=== PATIENT | male | born 1990 | race American Indian/Alaskan Native ===

== ENCOUNTER 2017-02-06 19:37 | Inpatient (IN) | payer SELFPAY ==
[~2017-02-06] VITALS: Ht 188 cm; Wt 65.7 kg
--- NOTE | ~2017-02-06 | HP ---
PATIENT'S NAME: CAROL WINKLER [facility] AGE: 26 Y [address] ROOM: [place] [address] LOCATION: [facility] ADMIT DATE: 02/06/2017 History & Physical DISCHARGE DATE: FAMILY PHYSICIAN: PHYSICIAN, NO ATTENDING PHYSICIAN: Aniket Wolff DATE OF SERVICE: CHIEF COMPLAINT: Seizure in the setting of alcohol dependence and hyponatremia. HISTORY OF PRESENTING ILLNESS: This 26-year-old male was brought to the emergency department by family after a seizure, which occurred this evening. Apparently, he had been with friends when he had some seizure activity. It is unclear how long the episode lasted, but it did resolve spontaneously. After his arrival in the emergency room, he was tremulous but alert and cooperative. He states he does not have any recollection of the episode. "I just woke up in the ambulance." He does relate he had been sick several days ago after a drinking binge. He states that he had been drinking quite a bit of whiskey and developed some nausea, vomiting, and anorexia, which lasted for a couple of days. Today, he started drinking again, and the seizure episode subsequently occurred. He does complain of mild headache. Also feels a little dizzy and lightheaded, but he is not nauseated. Denies double vision or scotomata but does have some blurred vision intermittently. No antwon chest pain. No congestion or cough. No significant shortness of breath. Denies antwon abdominal pain. Stools have been regular. Denies noticing any blood in his stools or black tarry stools. No urinary complaints. No numbness, tingling, or weakness in his extremities or any other associated physical or constitutional complaints. ALLERGIES: AMOXICILLIN CAUSES GI UPSET. ILLNESSES: 1. Alcohol dependence. 2. Polysubstance use. CURRENT MEDICATIONS: None. FAMILY HISTORY: Negative for cancer or stroke. PATIENT'S NAME: CAROL WINKLER [facility] AGE: 26 Y [address] ROOM: [id number] [place], [place] [address] LOCATION: [facility] ADMIT DATE: 02/06/2017 History & Physical DISCHARGE DATE: FAMILY PHYSICIAN: PHYSICIAN, NO ATTENDING PHYSICIAN: Aniket Wolff SOCIAL HISTORY: He is unmarried and lives in [place]. He admits to drinking 5/7 days a week, typically whiskey. He can not quantify. He often drinks a couple of 40 ounce beers on did a daily basis. He also admits to smoking tobacco but not regularly. He can not remember the last time he smoked a cigarette but does smoke marijuana occasionally. He thinks that he may have smoked marijuana within the last 24 hours. He can not quantify his usage of that but denies any other illicit drug use, herbal remedies, or significant caffeine intake. He does not use energy drinks. REVIEW OF SYSTEMS: As per HPI. All other organ systems reviewed and are negative. PHYSICAL EXAMINATION: VITAL SIGNS: Temperature 100.4, pulse 139, respirations 20, blood pressure 122/61, O2 saturation 95% on room air. GENERAL: He is anxious, mildly ill appearing, lying in the bed, in no acute distress. SKIN: Supple, brown, warm, and dry. There are tattoos over the chest and upper extremities and several skin piercings but no rashes. HEENT: Otherwise, normocephalic. Sclerae nonicteric. Pupils equal, round, and reactive to light and accommodation. Extraocular movements appear intact. Nasal turbinates are normal in appearance. Oropharynx clear. Mucous membranes are pink and moist. NECK: Supple. No masses or adenopathy. No thyromegaly. No JVD. CHEST: Wall is symmetrical. HEART: Tachycardic but regular. LUNGS: Diminished at the bases. No wheezes, no crackles. No rales or consolidation. ABDOMEN: Soft, flat, diffusely tender but without guarding or rebound. No masses or hepatosplenomegaly. and RECTAL: Not done. EXTREMITIES: Display cachexia. No clubbing, cyanosis, or edema. NEUROLOGICAL: Tremulous. Strength is 4 to 5 out of 5 bilaterally in the upper and lower extremities. DTRs are 2+, brisk, symmetrical. Sensation appears intact. Gait is not observed. LABORATORY AND X-RAY DATA: CBC showed a white blood cell count 8.1, hemoglobin is 14.1, hematocrit 40.3, platelets 162. Chemistries reveal BUN and creatinine of 9 and 1.3 respectively, sodium and potassium of 122 and 3.0, chloride and CO2 are 78 and 18 respectively, calcium is 8.0. AST and ALT of 807 and 195 respectively, bilirubin is 0.7, glucose was minimally elevated at 108. Urine drug screen was positive for THC. Serum ethanol level was 0.066. Tylenol and salicylates PATIENT'S NAME: CAROL WINKLER [facility] AGE: 26 Y [address] ROOM: [id number] [place] [id number] LOCATION: [facility] ADMIT DATE: 02/06/2017 History & Physical DISCHARGE DATE: FAMILY PHYSICIAN: PHYSICIAN, NO ATTENDING PHYSICIAN: Aniket Wolff levels were below limits of detectability. A serum prolactin level was elevated at 47.3. ASSESSMENT AND PLAN: 1. Seizure in the setting of hyponatremia and alcohol dependence. We will admit for observation. We will hold off on any antiseizure medication and work on correcting his sodium and managing alcohol dependence. We will provide some supportive cares and clinical monitoring. We will utilize benzodiazepine therapy carefully. 2. Alcohol dependence. I placed him on the detox pathway. We will monitor and utilize oral diazepam. If his nausea persists, we will switch to IV Ativan. 3. Hypokalemia. We will correct with IV potassium and monitor. 4. Elevated liver function tests. Suspect alcoholic hepatitis. We will hydrate him and provide some supportive cares and clinical monitoring and follow this serially. Work on abstinence. 5. Polysubstance use. He is contemplative and requested some "help." We will request chemical dependency evaluation and review treatment options for him including both inpatient and outpatient opportunities. 6. Deep venous thrombosis prophylaxis. We will use low-dose Lovenox while he is inpatient. MD MARCE BARBER/sara /[id number] D: T: 804 HISTORY & PHYSICAL
--- NOTE | ~2017-02-06 | CON ---
PATIENT'S NAME: CAROL WINKLER [facility] AGE: 26 Y [address] ROOM: [place] [address] LOCATION: GICU ADMIT DATE: 02/06/2017 Consultation DISCHARGE DATE: FAMILY PHYSICIAN: PHYSICIAN, NO ATTENDING PHYSICIAN: Aniket Wolff DATE OF CONSULTATION: 02/07/2017 REFERRING PHYSICIAN: Kenya Neves MD REFERRING PHYSICIANS: Dr. Wolff and Dr. Gutierrez. CONSULTING PHYSICIAN: Kenya Neves M.D. REASON FOR CONSULTATION: Possible upper GI bleeding and hypotension. HISTORY OF PRESENT ILLNESS: The patient is a 26-year-old white male, who was unable to provide much history because of his confusion. He was admitted yesterday through the emergency room for a seizure. The exact episode was unclear. He had been on an alcohol binge. Complains of headache and developed seizures. Denied any black tarry stools at that time. This evening, I was called by Dr. Wolff. He has become hypotensive. He had a coffee-ground emesis. He was then transferred to the ICU. At the time of my assessment, he does have NG tube in place. The NG tube has some coffee- ground, which cleared up easily. He was hypotensive and has been started on pressors. However, after some aggressive fluid resuscitation, his hypotension is somewhat better. His blood pressure is about 100 systolic. I do not have any other history at this time other than alcohol dependence. ALLERGIES: AMOXIL. ILLNESSES: Include alcohol abuse and polysubstance abuse. CURRENT MEDICATIONS: None. FAMILY HISTORY: Noncontributory. PATIENT'S NAME: CAROL WINKLER [facility] AGE: 26 Y [address] ROOM: [place] [address] LOCATION: GICU ADMIT DATE: 02/06/2017 Consultation DISCHARGE DATE: FAMILY PHYSICIAN: PHYSICIAN, NO ATTENDING PHYSICIAN: Aniket Wolff SOCIAL HISTORY: He is unmarried and lives in [place]. Drinks alcohol 5 to 7 days a week. He also smokes marijuana occasionally. REVIEW OF SYSTEMS: Limited review of system was obtained from the chart and is negative other than what is mentioned in the history of present illness and past medical history. PHYSICAL EXAMINATION: GENERAL: Now, he is still confused. He was just sedated, and he is unsettled. He does not seem to have any icterus. VITAL SIGNS: His blood pressure is now in the range of about 110 systolic after resuscitation and vasopressors. CHEST: He has good air entry bilaterally. ABDOMEN: Soft. I do not see any ascites, although exam is very limited. LABORATORY DATA: His labs done today: INR is 1.27. Procalcitonin is high at 6.82. Basic panel: Sodium 131, potassium 3.6, chloride 93, bicarbonate is 27, BUN is 40, creatinine is 1.1. CBC shows WBC 10.3, hemoglobin 8.8, hematocrit 26.1, platelet count is 121. His hemoglobin yesterday evening was 14.1 and is 8.8 now. Platelet count is 121, which is down from 222. He does have a slight left shift 76 % neutrophils. IMPRESSION: The patient with very complex presentation, currently has hypotension. NG tube does not show any evidence of fresh blood. There has been some coffee- ground. It does not appear to be a variceal bleed at this point at least. However, he could have a postpyloric ulcer bleed. Interestingly, his BUN has also gone up and this might suggest bleeding. He has been currently intubated. At this time, I would suggest that we continue with the octreotide 50 mcg an hour after 100 mcg bolus. We will continue with PPI infusion. We will continue to watch his hemoglobin. We will hydrate him aggressively. Should he continue to be hypotensive, he may need an urgent endoscopy tonight. He will be watched very closely. This was discussed with Dr. Wolff. Thank you once again for the courtesy of this consultation. MD SLIM CARRINGTON/sara PATIENT'S NAME: CAROL WINKLER [facility] AGE: 26 Y [address] ROOM: [place] [address] LOCATION: [facility] ADMIT DATE: 02/06/2017 Consultation DISCHARGE DATE: FAMILY PHYSICIAN: PHYSICIAN, NO ATTENDING PHYSICIAN: Aniket Wolff /[id number] d: 02/08/17 0304 t: 02/08/17 1816, CONSULTATION REPORT
--- NOTE | ~2017-02-06 | PN ---
PATIENT'S NAME: CAROL WINKLER [facility] AGE: 26 Y [address] ROOM: [id number] [place], [place] [address] LOCATION: GICU ADMIT DATE: 02/06/2017 Progress Notes DISCHARGE DATE: FAMILY PHYSICIAN: PHYSICIAN, NO ATTENDING PHYSICIAN: Aniket Wolff DATE OF SERVICE: 02/09/2017 PRINCIPAL DIAGNOSES: 1. Seizures secondary to alcohol withdrawal as well as hyponatremia. 2. Acute blood loss anemia secondary to esophageal tear. 3. Acute gastritis, alcohol induced. 4. Fatty liver disease secondary to alcohol abuse. 5. Moderate protein-calorie malnutrition. 6. Rhabdomyolysis. 7. Alcohol abuse and dependence. 8. Polysubstance abuse. 9. Hyponatremia. HOSPITAL COURSE: A 26-year-old gentleman, who had a past medical history of heavy alcohol abuse, was admitted to the hospital with an episode of seizure. Initial evaluation with a CAT scan was negative for any acute changes in the head. His lab work did show significant hyponatremia with an initial sodium level of 122. He was placed on a regular floor initially. He was started on careful volume resuscitation with the goal of correction of sodium with 6 per day. He was also given a dose of desmopressin. He was also started on alcohol withdrawal protocol, requiring high doses of benzodiazepines for that. During his stay on the regular mari, he started developing marked tachycardia as well as hypotension. Labs were drawn. He was found to have acute blood loss anemia with his hemoglobin dropping from 14 to 8. An NG tube was placed, and coffee-grounds blood was aspirated from the stomach. He was transferred to the intensive care unit. Central venous access was achieved. He was intubated for airway protection. He was initially started on a PPI drip as well as octreotide drip. Gastroenterology consultation was obtained, and he did undergo an EGD which did reveal esophageal tear as well as acute gastritis, but no ulcers were found. He did briefly require pressors to maintain his blood pressure secondary to this hypovolemic shock. He was extubated next day without any acute events. His sodium, over the course of 72 hours, was corrected to 135. He continues to be on alcohol withdrawal protocol. Of note, he also had rhabdomyolysis which, despite aggressive volume resuscitation, was hard to improve. We are keeping an eye on it. We will continue intravenous resuscitation to correct for his rhabdomyolysis. We will PATIENT'S NAME: CAROL WINKLER [facility] AGE: 26 Y [address] ROOM: [address] [address] LOCATION: [facility] ADMIT DATE: 02/06/2017 Progress Notes DISCHARGE DATE: FAMILY PHYSICIAN: PHYSICIAN, NO ATTENDING PHYSICIAN: Aniket Wolff monitor with CPK. He also developed aspiration pneumonia. For that, we started him on Zosyn. MD OSMIN SWIFT/sara /[id number] d: 02/09/171615 t: 02/16/171955, PROGRESS NOTES
--- NOTE | ~2017-02-06 | DS ---
PATIENT'S NAME: CAROL WINKLER [facility] AGE: 26 Y [address] ROOM: [id number] [place], [place] [address] LOCATION: GICU ADMIT DATE: 02/06/2017 Discharge Summary DISCHARGE DATE: 02/11/2017 FAMILY PHYSICIAN: PHYSICIAN, NO ATTENDING PHYSICIAN: Aniket Wolff PRINCIPAL DIAGNOSES: 1. Seizure secondary to alcohol withdrawal. 2. Hyponatremia. 3. Upper gastrointestinal bleed. 4. Maura-Murrieta tear. 5. Alcohol abuse. 6. Acute respiratory failure, requiring intubation. 7. Rhabdomyolysis. HOSPITAL COURSE: This is a 26-year-old male with past medical history of heavy alcohol use, admitted to the hospital after an episode of seizure and confusion. The patient was worked up for seizure including CAT scan of the head, which was negative. The patient on initial workup had sodium level of 122 as well. The patient was initially placed on the regular floor with goals of volume resuscitation and correction of sodium. He was also started on alcohol withdrawal protocol and also given a dose of desmopressin due to his mentation and low sodium upon admission. While on the general medical floor, the patient was noted to be hypotensive and found to have coffee-ground emesis and hemoglobin drop of 8 from 14, which was the value upon presentation. The patient was subsequently transferred to the intensive care unit and was emergently intubated for airway protection. Gastroenterology consultation was obtained, and he did undergo an EGD, which revealed Maura-Murrieta type esophageal tear as well as esophagitis and gastritis. The patient also did require pressors briefly due to hypovolemic shock. The patient was successfully extubated the next day without any events. The patient's sodium was slowly corrected, and on discharge, the patient's sodium was 135. The patient did not have any signs and symptoms of alcohol withdrawal during his hospitalization as well. Of note, the patient was also noted to have a CPK level greater than 12,000; however; there were no signs of SHARMIN or ATN due to this. The aggressive fluid resuscitation was continued, and the patient's CPK today is 7000, which was a drop from 12,000 yesterday. The patient is making adequate urine. At this point, the patient will be discharged home with his mother, who will move the patient with her to [place]. The patient's mother is able to find a primary care physician to follow up within one week. The patient is to have a repeat renal panel, CPK, and CBC. The patient was also noted to have aspiration pneumonia during the hospitalization and had been on broad-spectrum antibiotics, and we will send him on Augmentin for 5 more days to finish antibiotic course. PATIENT'S NAME: CAROL WINKLER [facility] AGE: 26 Y [address] ROOM: [id number] [place] [address] LOCATION: [facility] ADMIT DATE: 02/06/2017 Discharge Summary DISCHARGE DATE: 02/11/2017 FAMILY PHYSICIAN: PHYSICIAN, NO ATTENDING PHYSICIAN: Aniket Wolff PHYSICAL EXAMINATION: GENERAL: The patient is alert, awake, and oriented x3. VITAL SIGNS: Stable. Afebrile. CHEST: Clear to auscultation bilaterally. HEART: S1, S2. Regular rate and rhythm. ABDOMEN: Soft, nontender, nondistended. EXTREMITIES: Without edema. NEURO: Grossly nonfocal. MEDICATIONS: Per MAR includin. Protonix 40 mg daily. 2. Augmentin b.i.d. for 5 more days. DISPOSITION: The patient discharged home with mother, who will be staying with him in [place]. FOLLOWUP: Follow up with PCP within one week and mother is arranging for that currently. Greater than 30 minutes were spent in discharge planning and facilitating. MD VLADIMIR MCCORMACK/sara /[id number] d: 02/12/17 0248 t: 02/17/17 1419, DISCHARGE SUMMARY
--- NOTE | ~2017-02-06 | ER ---
PATIENT'S NAME: CAROL WINKLER [facility] AGE: 26 Y [address] ROOM: [place] [address] LOCATION: [facility] ADMIT DATE: 02/06/2017 ER/Outpatient Report DISCHARGE DATE: FAMILY PHYSICIAN: PHYSICIAN, NO ATTENDING PHYSICIAN: Aniket Wolff TIME OF EXAMINATION: 19:35. CHIEF COMPLAINT: Seizure. HISTORY OF PRESENT ILLNESS: The patient arrived per EMS [place] [id number], with IV in the right hand wrist. Just prior to arrival, the patient was in the backseat of a car and they were driving. He was drinking at that time. He had been talking to the people in the car, and then had seizure-like activity. Witness states that his eyes rolled back, he was frothing at the mouth, and having a tonic-clonic type activity of the upper extremities. He was unresponsive during the seizure. Upon arrival of the ambulance, he was postictal. Upon arrival to the ER, the patient is awake and able to answer questions. He denies having a headache. He states he was feeling fine prior to the episode, except two days ago, he did have problems with vomiting. He denies having a change in his vision. Other than the alcohol, only he had been smoking marijuana. He denies any injury with this seizure and did not hit his head. He did not fall down. ALLERGIES: AMOXICILLIN. CURRENT MEDICATIONS: None. PAST MEDICAL HISTORY: 1. Alcohol abuse. 2. Tobacco abuse. PAST SURGERIES: Negative. SOCIAL HISTORY: He states he smokes at least four cigarettes per day, and drinks alcohol at least 5/7 days of the week. He states that he drinks at least a fifth of whiskey when he drinks. He has been drinking on a regular basis since he turned [age]. Today, he had two 40-ounce beers and some marijuana. PATIENT'S NAME: CAROL WINKLER [facility] AGE: 26 Y [address] ROOM: [id number] [place] [address] LOCATION: [facility] ADMIT DATE: 02/06/2017 ER/Outpatient Report DISCHARGE DATE: FAMILY PHYSICIAN: PHYSICIAN, NO ATTENDING PHYSICIAN: Aniket Wolff REVIEW OF SYSTEMS: All were negative other than those mentioned in the HPI. PHYSICAL EXAMINATION: VITAL SIGNS: He states he is 6 feet 3 inches and weight is 167.1 kg. Blood pressure is 100/54, pulse is 139, respirations are 20, temperature is 100.4, and tympanic O2 saturation is 95% on room air. GENERAL: He is awake, alert, and oriented x4. SKIN: [place], warm, and dry. HEENT: Pupils are equal and reactive to light. Extraocular movements are intact. TMs are clear. Nose is clear. Oropharynx is clear. NECK: Supple. LUNGS: Respirations are even and nonlabored. Lung sounds were clear throughout. HEART: Tachycardic and regular. ABDOMEN: Soft and nondistended. Bowel sounds are present. EXTREMITIES: Showed no peripheral edema. He moves all limbs equally. LABORATORY DATA AND DIAGNOSTIC STUDIES: Lab work was obtained. CT of the head was completed. Radiologist reported no acute abnormalities. The patient was given Tylenol 1000 mg p.o. for his fever. CBC was within normal limits. Chemistry panel showed a sodium of 122, potassium of 3, chloride of 78, his CO2 was 18 with anion gap of 29, and his BUN was 9 with creatinine of 1.3. Total bilirubin is 0.7. His AST is elevated at 807 with an ALT of 195. Medical alcohol was 0.066. Tylenol is negative. Aspirin is negative. Prolactin is 47.3. He was able to urinate. Urine drug screen is positive for cannabinoids. EKG showed sinus tachycardia. Dr. Wolff was contacted regarding the patient. He agrees that the patient needs to be admitted. IMPRESSION: 1. Seizure, new onset. 2. Hyponatremia. 3. Hypokalemia. 4. EtOH abuse. PLAN: The patient will be placed in outpatient observation in the Neuro Trauma Unit on telemetry for cares of Dr. Wolff, the hospitalist. The patient and his family are aware of plan of care and agree. PATIENT'S NAME: CAROL WINKLER [facility] AGE: 26 Y [address] ROOM: [place] [address] LOCATION: [facility] ADMIT DATE: 02/06/2017 ER/Outpatient Report DISCHARGE DATE: FAMILY PHYSICIAN: PHYSICIAN, NO ATTENDING PHYSICIAN: Aniket Wolff APRN FOR MD HENRIQUE MCNAMARA/sara /[id number] d: 02/07/17 0130 t: 02/15/17 0607, OUTPATIENT REPORT
[2017-02-06 19:54] LABS: BASOPHIL % 0.2 %; EOSINOPHIL % 0.1 %; HEMATOCRIT 40.3 % (37.0-53.0); HEMOGLOBIN 14.1 g/dL (12.0-17.0); IMMATURE GRANULOCYTE % 0.5 %; LYMPHOCYTE # 1.2 K/uL (0.8-4.0); LYMPHOCYTE % 14.7 %; MCH 31.7 pg (27.0-34.0); MCV 90.6 fl (83.0-98.0); MONOCYTE # 0.6 K/uL (0.0-1.0); MONOCYTE % 7.4 %; MPV 9.7 fl (9.4-12.4); NEUTROPHIL # (ANC) 6.3 K/uL (1.4-9.0); NEUTROPHIL % 77.1 %; NRBC % 0.4 /100WBC (0-0.00); PLATELET COUNT 162 K/uL (150-450); RBC 4.45 M/uL (4.00-6.00); RDW-CV 14.1 % (11.9-14.6); WBC 8.1 K/uL (4.0-11.0)
[2017-02-06 20:10] LABS: ALBUMIN 3.1 gm/dL (3.5-5.0); ALK PHOS 133 IU/L (33-138); ALT 195 IU/L (12-78); BLOOD UREA NITROGEN 9 mg/dL (6-24); CO2 18 mMol/L (22-32); CREATININE 1.3 mg/dL (0.6-1.3); ESTIMATED GFR (MDRD EQUATION) > 60; TOTAL BILIRUBIN 0.7 mg/dL (0.0-1.5); TOTAL PROTEIN 8.4 g/dL (6.0-8.4)
[2017-02-06 20:11] LABS: AST 807 IU/L (10-40); CHLORIDE 78 mMol/L (96-110); SODIUM 122 mMol/L (135-145)
[2017-02-06 20:36] LABS: AMPHETAMINE NEGATIVE (NEGATIVE); BARBITURATE NEGATIVE (NEGATIVE); COCAINE NEGATIVE (NEGATIVE); OPIATES NEGATIVE (NEGATIVE)
[2017-02-06 23:15] LABS: CALCIUM 7.7 mg/dL (8.5-10.5); CO2 21 mMol/L (22-32); CREATININE 1.2 mg/dL (0.6-1.3); ESTIMATED GFR (MDRD EQUATION) > 60; POTASSIUM 3.1 mMol/L (3.7-5.1)
[2017-02-06 23:18] LABS: ANION GAP 24.1 (10.0-19.0); BLOOD UREA NITROGEN 14 mg/dL (6-24); CHLORIDE 80 mMol/L (96-110); SODIUM 122 mMol/L (135-145)
[2017-02-07 04:09] LABS: BASOPHIL % 0.1 %; EOSINOPHIL % 0.1 %; HEMATOCRIT 33.7 % (37.0-53.0); HEMOGLOBIN 11.8 g/dL (12.0-17.0); IMMATURE GRANULOCYTE # 0.1 K/uL (0.0-0.3); IMMATURE GRANULOCYTE % 0.9 %; LYMPHOCYTE # 1.2 K/uL (0.8-4.0); LYMPHOCYTE % 12.7 %; MCV 91.3 fl (83.0-98.0); MONOCYTE # 0.7 K/uL (0.0-1.0); MONOCYTE % 8.1 %; MPV 10.9 fl (9.4-12.4); NEUTROPHIL # (ANC) 7.1 K/uL (1.4-9.0); NEUTROPHIL % 78.1 %; NRBC % 0 /100WBC (0-0.00); PLATELET COUNT 148 K/uL (150-450); RBC 3.69 M/uL (4.00-6.00); RDW-CV 14.6 % (11.9-14.6); WBC 9.1 K/uL (4.0-11.0)
[2017-02-07 04:25] LABS: CALCIUM 7.6 mg/dL (8.5-10.5); CO2 30 mMol/L (22-32); CREATININE 1.2 mg/dL (0.6-1.3); ESTIMATED GFR (MDRD EQUATION) > 60; PHOSPHORUS 3.2 mg/dL (2.5-4.9); POTASSIUM 3.8 mMol/L (3.7-5.1); SODIUM 127 mMol/L (135-145)
[2017-02-07 04:26] LABS: ANION GAP 15.8 (10.0-19.0); BLOOD UREA NITROGEN 22 mg/dL (6-24); CHLORIDE 85 mMol/L (96-110)
[2017-02-07] MEDS ORDERED: TYLENOL EXTRA500 MG PO (08:01)
[2017-02-07 16:37] LABS: ANION GAP 14.6 (10.0-19.0); BLOOD UREA NITROGEN 33 mg/dL (6-24); CHLORIDE 91 mMol/L (96-110); CO2 28 mMol/L (22-32); CREATININE 0.9 mg/dL (0.6-1.3); ESTIMATED GFR (MDRD EQUATION) > 60; POTASSIUM 3.6 mMol/L (3.7-5.1); SODIUM 130 mMol/L (135-145)
[2017-02-07 16:40] LABS: CALCIUM 7.3 mg/dL (8.5-10.5)
[2017-02-07 20:08] LABS: BILIRUBIN URINE NEGATIVE (NEGATIVE); BLOOD URINE 50 /UL (NEGATIVE); COLOR URINE YELLOW (YELLOW); GLUCOSE URINE NEGATIVE (NEGATIVE); KETONE URINE 15 mg/dL (NEGATIVE); LEUKOCYTES URINE 100 /UL (NEGATIVE); NITRITE URINE NEGATIVE (NEGATIVE); PROTEIN URINE 30 mg/dL (NEGATIVE); TURBIDITY URINE 1+ (CLEAR); UROBILINOGEN URINE NORMAL (NORMAL)
[2017-02-07 20:18] LABS: BACTERIA URINE NEGATIVE (NEGATIVE); EPITHELIAL URINE 0-2 #/HPF (NEGATIVE); RBC URINE RARE #/HPF (NEGATIVE); WBC URINE 20-50 #/HPF (NEGATIVE)
[2017-02-07 20:27] LABS: BASOPHIL % 0.2 %; EOSINOPHIL % 0.1 %; HEMATOCRIT 26.1 % (37.0-53.0); HEMOGLOBIN 8.8 g/dL (12.0-17.0); IMMATURE GRANULOCYTE # 0.1 K/uL (0.0-0.3); LYMPHOCYTE % 19.2 %; MCHC 33.7 gm/dL (32.0-36.5); MCV 94.9 fl (83.0-98.0); MONOCYTE # 0.7 K/uL (0.0-1.0); MONOCYTE % 6.4 %; MPV 10.8 fl (9.4-12.4); NEUTROPHIL # (ANC) 7.6 K/uL (1.4-9.0); NEUTROPHIL % 73.1 %; NRBC % 0 /100WBC (0-0.00); PLATELET COUNT 121 K/uL (150-450); RBC 2.75 M/uL (4.00-6.00); RDW-CV 14.6 % (11.9-14.6); WBC 10.3 K/uL (4.0-11.0)
[2017-02-07 20:40] LABS: ANION GAP 14.6 (10.0-19.0); BLOOD UREA NITROGEN 40 mg/dL (6-24); CHLORIDE 93 mMol/L (96-110); CO2 27 mMol/L (22-32); CREATININE 1.1 mg/dL (0.6-1.3); ESTIMATED GFR (MDRD EQUATION) > 60; POTASSIUM 3.6 mMol/L (3.7-5.1); SODIUM 131 mMol/L (135-145)
[2017-02-07 21:49] LABS: INR - (THERAPEUTIC) 1.27 (0.92-1.07); PROTIME 13.4 SECONDS (9.8-11.4)
[2017-02-08 01:06] LABS: HEMATOCRIT 25.2 % (37.0-53.0); HEMOGLOBIN 8.6 g/dL (12.0-17.0)
[2017-02-08 04:15] LABS: BICARBONATE 29.5 mmol/L (18.0-23.0); PCO2 37 mmHg (35-45); PO2 135 mmHg (80-90)
[2017-02-08 05:10] LABS: ANION GAP 13.3 (10.0-19.0); BLOOD UREA NITROGEN 30 mg/dL (6-24); CHLORIDE 97 mMol/L (96-110); CO2 27 mMol/L (22-32); CREATININE 0.7 mg/dL (0.6-1.3); ESTIMATED GFR (MDRD EQUATION) > 60; POTASSIUM 3.3 mMol/L (3.7-5.1); SODIUM 134 mMol/L (135-145)
[2017-02-08 05:11] LABS: CALCIUM 6.5 mg/dL (8.5-10.5); PHOSPHORUS 1.8 mg/dL (2.5-4.9)
[2017-02-08 05:16] LABS: ALBUMIN 1.8 gm/dL (3.5-5.0); HEMATOCRIT 26.8 % (37.0-53.0); HEMOGLOBIN 9.3 g/dL (12.0-17.0); MCH 31.5 pg (27.0-34.0); MCHC 34.7 gm/dL (32.0-36.5); MCV 90.8 fl (83.0-98.0); MPV 11.4 fl (9.4-12.4); PLATELET COUNT 91 K/uL (150-450); RBC 2.95 M/uL (4.00-6.00); RDW-CV 14.6 % (11.9-14.6); TOTAL BILIRUBIN 1.4 mg/dL (0.0-1.5); TOTAL PROTEIN 4.6 g/dL (6.0-8.4); WBC 8.6 K/uL (4.0-11.0)
[2017-02-08 05:47] LABS: ABSOLUTE NEUTROPHIL CT (ANC) 6.7 K/uL (1.4-9.0); BANDED NEUTROPHIL # 1.7 K/uL (0.0-0.1); BANDED NEUTROPHILS % 20 %; LYMPHOCYTE # 1.5 K/uL (0.8-4.0); LYMPHOCYTE % 18 %; MONOCYTE # 0.2 K/uL (0.0-1.0); SEGMENTED NEUTROPHIL % 58 %
[2017-02-08 07:25] LABS: HEMATOCRIT 27.3 % (37.0-53.0); HEMOGLOBIN 9.5 g/dL (12.0-17.0)
[2017-02-08 12:02] LABS: HEMOGLOBIN 8.5 g/dL (12.0-17.0)
[2017-02-08 15:58] LABS: HEMATOCRIT 26.3 % (37.0-53.0); HEMOGLOBIN 9.1 g/dL (12.0-17.0)
[2017-02-08 20:22] LABS: HEMOGLOBIN 9.2 g/dL (12.0-17.0)
[2017-02-09 00:17] LABS: HEMATOCRIT 26.2 % (37.0-53.0); HEMOGLOBIN 9.2 g/dL (12.0-17.0)
[2017-02-09 04:09] LABS: BICARBONATE 24.7 mmol/L (18.0-23.0); PO2 149 mmHg (80-90)
[2017-02-09 04:15] LABS: PCO2 27 mmHg (35-45)
[2017-02-09 04:41] LABS: ALBUMIN 2.5 gm/dL (3.5-5.0); ALK PHOS 63 IU/L (33-138); ALT 148 IU/L (12-78); ANION GAP 17.5 (10.0-19.0); AST 533 IU/L (10-40); BLOOD UREA NITROGEN 10 mg/dL (6-24); CALCIUM 7.7 mg/dL (8.5-10.5); CHLORIDE 100 mMol/L (96-110); CO2 22 mMol/L (22-32); CREATININE 0.6 mg/dL (0.6-1.3); ESTIMATED GFR (MDRD EQUATION) > 60; POTASSIUM 3.5 mMol/L (3.7-5.1); SODIUM 136 mMol/L (135-145); TOTAL BILIRUBIN 1.4 mg/dL (0.0-1.5); TOTAL PROTEIN 5.6 g/dL (6.0-8.4)
[2017-02-09 04:47] LABS: BASOPHIL % 0.3 %; EOSINOPHIL % 0.3 %; HEMOGLOBIN 11.7 g/dL (12.0-17.0); IMMATURE GRANULOCYTE % 0.6 %; LYMPHOCYTE # 0.9 K/uL (0.8-4.0); LYMPHOCYTE % 14.4 %; MONOCYTE # 0.3 K/uL (0.0-1.0); MPV 10.9 fl (9.4-12.4); NEUTROPHIL # (ANC) 5.1 K/uL (1.4-9.0); NEUTROPHIL % 79.4 %; NRBC % 0 /100WBC (0-0.00); RDW-CV 15.9 % (11.9-14.6); WBC 6.5 K/uL (4.0-11.0)
[2017-02-09 04:51] LABS: HEMATOCRIT 33.1 % (37.0-53.0); MCH 31.5 pg (27.0-34.0); MCHC 35.3 gm/dL (32.0-36.5); PLATELET COUNT 65 K/uL (150-450); RBC 3.72 M/uL (4.00-6.00)
[2017-02-10 05:34] LABS: ANION GAP 13.5 (10.0-19.0); BLOOD UREA NITROGEN 5 mg/dL (6-24); CALCIUM 7.7 mg/dL (8.5-10.5); CHLORIDE 101 mMol/L (96-110); CO2 24 mMol/L (22-32); CREATININE 0.5 mg/dL (0.6-1.3); ESTIMATED GFR (MDRD EQUATION) > 60; POTASSIUM 3.5 mMol/L (3.7-5.1); SODIUM 135 mMol/L (135-145)
[2017-02-10 05:35] LABS: HEMOGLOBIN 8.8 g/dL (12.0-17.0); MCV 92.4 fl (83.0-98.0); MPV 11.2 fl (9.4-12.4); RDW-CV 15.4 % (11.9-14.6); WBC 5.3 K/uL (4.0-11.0)
[2017-02-10 05:40] LABS: HEMATOCRIT 25.7 % (37.0-53.0); MCH 31.7 pg (27.0-34.0); MCHC 34.2 gm/dL (32.0-36.5); PLATELET COUNT 86 K/uL (150-450); RBC 2.78 M/uL (4.00-6.00)
[2017-02-10 06:22] LABS: ABSOLUTE NEUTROPHIL CT (ANC) 3.7 K/uL (1.4-9.0); BANDED NEUTROPHIL # 0.1 K/uL (0.0-0.1); BANDED NEUTROPHILS % 1 %; LYMPHOCYTE # 1.2 K/uL (0.8-4.0); LYMPHOCYTE % 23 %; MONOCYTE # 0.2 K/uL (0.0-1.0); SEGMENTED NEUTROPHIL # 3.7 K/uL (1.4-9.0); SEGMENTED NEUTROPHIL % 69 %
[2017-02-11 04:59] LABS: HEMATOCRIT 25.9 % (37.0-53.0); HEMOGLOBIN 8.8 g/dL (12.0-17.0); MCH 31.9 pg (27.0-34.0); MCV 93.8 fl (83.0-98.0); MPV 10.9 fl (9.4-12.4); RBC 2.76 M/uL (4.00-6.00); RDW-CV 15.5 % (11.9-14.6); WBC 4.1 K/uL (4.0-11.0)
[2017-02-11 05:00] LABS: PLATELET COUNT 129 K/uL (150-450)
[2017-02-11 05:34] LABS: ABSOLUTE NEUTROPHIL CT (ANC) 1.9 K/uL (1.4-9.0); BANDED NEUTROPHIL # 0.2 K/uL (0.0-0.1); BANDED NEUTROPHILS % 4 %; LYMPHOCYTE # 1.8 K/uL (0.8-4.0); LYMPHOCYTE % 42 %; MONOCYTE # 0.3 K/uL (0.0-1.0); SEGMENTED NEUTROPHIL # 1.7 K/uL (1.4-9.0); SEGMENTED NEUTROPHIL % 42 %
[2017-02-11] MEDS ORDERED: PROTONIX40 MG PO (14:15)
[2017-02-11] MEDS ORDERED: ZOFRAN4 MG PO (14:17)
[2017-02-11] MEDS ORDERED: AUGMENTIN 875-1 EACH PO (14:46)
[2017-02-11] MEDS ORDERED: FEOSOL325 MG PO (14:46)
[2017-02-11] MEDS ORDERED: AMOXICILLIN875 MG PO (15:41)
[2017-02-11] MEDS ORDERED: PRILOSEC OTC20 MG PO (15:43)
== END 2017-02-11 16:55 | disposition disaster alternative care site (69) | DRG 896 ==
LOC: GAMB 19:37 → GMED 19:37 → GICU 21:05 → GNTU 21:05 → GICU 21:05
PROVIDERS: Internal Medicine; Nurse Practitioner Family; ADMIT Family Medicine
PROC: HZ2ZZZZ Detoxification Services for Substance Abuse Treatment (ICD-10-PCS; principal; 2017-02-06)
PROC: 5A1945Z Respiratory Ventilation, 24-96 Consecutive Hours (ICD-10-PCS; 2017-02-07)
PROC: 0BH17EZ Insertion of Endotracheal Airway into Trachea, Via Natural or Artificial Opening (ICD-10-PCS; 2017-02-07)
PROC: 30233N1 Transfusion of Nonautologous Red Blood Cells into Peripheral Vein, Percutaneous Approach (ICD-10-PCS; 2017-02-07)
PROC: 02HV33Z Insertion of Infusion Device into Superior Vena Cava, Percutaneous Approach (ICD-10-PCS; 2017-02-08)
PROC: 0DJ08ZZ Inspection of Upper Intestinal Tract, Via Natural or Artificial Opening Endoscopic (ICD-10-PCS; 2017-02-08)
PROC: 30233N1 Transfusion of Nonautologous Red Blood Cells into Peripheral Vein, Percutaneous Approach (ICD-10-PCS; 2017-02-08)
DX: F10.239 Alcohol dependence with withdrawal, unspecified (principal); J96.01 Acute respiratory failure with hypoxia; R57.1 Hypovolemic shock; J69.0 Pneumonitis due to inhalation of food and vomit; K22.6 Gastro-esophageal laceration-hemorrhage syndrome; J96.02 Acute respiratory failure with hypercapnia; E44.0 Moderate protein-calorie malnutrition; K29.71 Gastritis, unspecified, with bleeding; M62.82 Rhabdomyolysis; D62 Acute posthemorrhagic anemia; E87.1 Hypo-osmolality and hyponatremia; Z68.1 Body mass index [BMI] 19.9 or less, adult; R56.9 Unspecified convulsions; F10.20 Alcohol dependence, uncomplicated; K20.9 Esophagitis, unspecified; Z87.891 Personal history of nicotine dependence; I95.9 Hypotension, unspecified; E87.6 Hypokalemia; F19.90 Other psychoactive substance use, unspecified, uncomplicated; Z78.1 Physical restraint status; Z23 Encounter for immunization
CPT/HCPCS: C9113; G0009; G0378; G0480; J0330; J1630; J1650; J2060; J2250; J2270; J2354; J2370; J2405; J2543; J2597; J3480; J7030; J7040; J7050; J7120; P9016; P9047; Q9967

== ENCOUNTER 2017-05-26 10:56 | Emergency (ER) | payer SELFPAY ==
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
== END 2017-05-26 12:43 | disposition disaster alternative care site (69) ==
LOC: GACC 10:56
DX: S42.031A Displaced fracture of lateral end of right clavicle, initial encounter for closed fracture (principal); S00.81XA Abrasion of other part of head, initial encounter; F17.210 Nicotine dependence, cigarettes, uncomplicated; Z88.1 Allergy status to other antibiotic agents; Y08.09XA Assault by strike by other specified type of sport equipment, initial encounter; Y92.89 Other specified places as the place of occurrence of the external cause

== ENCOUNTER → 2017-05-26 | Outpatient (CLI) | payer SELFPAY ==
[~2017-05-26] MED LIST: AMOXICILLIN875 MG PO; AUGMENTIN 875-1 EACH PO; FEOSOL325 MG PO; PRILOSEC OTC20 MG PO; PROTONIX40 MG PO; TYLENOL EXTRA500 MG PO; ZOFRAN4 MG PO
== END | disposition disaster alternative care site (69) ==
LOC: GAMB 10:43
DX: S49.91XA Unspecified injury of right shoulder and upper arm, initial encounter (principal); M25.511 Pain in right shoulder; V00.138A Other skateboard accident, initial encounter
CPT/HCPCS: A0425; A0429